=== PATIENT | female | born 1950 | race Caucasian/White ===

== ENCOUNTER → 2018-04-18 | Outpatient (CLI) | payer MEDICARE, OTHER ==
[2018-04-18 18:10] LABS: HEMATOCRIT 33.3 % (37.0-47.0); HEMOGLOBIN 10.7 gm/dL (12.0-15.0); MCH 28.8 pg (26.0-34.0); MCHC 32.2 g/dL (28.0-37.0); MCV 89.7 fL (80.0-100.0); MPV 7.3 fl. (7.2-11.1); RBC 3.71 mil/uL (4.20-5.00); RDW-CV 17.2 % (10.5-14.5); WBC 8.4 thou/uL (4.0-11.0)
== END ==
LOC: M.LAB 17:47
PROVIDERS: Internal Medicine
DX: K92.2 Gastrointestinal hemorrhage, unspecified (principal)